=== PATIENT | female | born 1985 | race Caucasian/White ===

== ENCOUNTER 2018-04-07 01:38 | Outpatient (CLI) | payer MEDICAID ==
[~2018-04-07] VITALS: Ht 165.1 cm; Wt 72.1 kg
[2018-04-07 01:52] VITALS: BP 132/78
--- NOTE | 2018-04-07 02:05 | NUR ---
LATRICE HARTMAN presented to unit via ambulation from home, accompanied by family, with c/o VOMITING,DEHYDRATED. LATRICE HARTMAN weighed, gowned, voided, and to bed. EFHM and TOCO applied, VS taken. LATRICE HARTMAN oriented to bed controls, call light, TV, heat, and A/C controls.
[2018-04-07] MEDS ORDERED: LACTATED RINGERS 1,000 ML IV ONE ×2 (02:31→02:45)
[2018-04-07] MEDS ORDERED: PNV11TAB5 PO (02:32)
[2018-04-07] MEDS ORDERED: ONDANSETRON 4 MG/2 ML (SDV) Z0FRAN IVP ONE (02:45)
[2018-04-07] MEDS ORDERED: ONDANSETRON 4 MG/2 ML (SDV) Z0FRAN ONE (02:49)
== END 2018-04-07 04:29 ==
LOC: WSo 01:38 → LDRP 01:39 → WSo 04:29
PROVIDERS: ATTEND Family Medicine
DX: O21.2 Late vomiting of pregnancy (principal); Z3A.26 26 weeks gestation of pregnancy
CPT/HCPCS: 96360; 96361; 99213

== ENCOUNTER 2020-03-14 10:30 | Emergency (ER) | payer MEDICAID ==
[~2020-03-14] VITALS: Ht 165.1 cm; Wt 77.1 kg
[~2020-03-14 10:30] MED LIST: PNV11TAB5 PO
[2020-03-14 11:29] LABS: BASOPHILS % (AUTO) 0 % (0-10); EOSINOPHILS % (AUTO) 0 % (0-10); HEMATOCRIT 42 % (35-52); HEMOGLOBIN 15.1 g/dL (11.5-16.0); LYMPHOCYTES # (AUTO) 2.6 10^3/uL (1.0-4.0); LYMPHOCYTES % (AUTO) 26 % (12-44); MEAN CORPUSCULAR HEMOGLOBIN 31 pg (25-34); MEAN CORPUSCULAR HGB CONC 36 g/dL (32-36); MEAN CORPUSCULAR VOLUME 86 fL (80-99); MEAN PLATELET VOLUME 10.5 fL (9.0-12.2); MONOCYTES # (AUTO) 1.1 10^3/uL (0.0-1.0); MONOCYTES % (AUTO) 11 % (0-12); NEUTROPHILS # (AUTO) 6.2 10^3/uL (1.8-7.8); NEUTROPHILS % (AUTO) 62 % (42-75); PLATELET COUNT 353 10^3/uL (130-400); WHITE BLOOD COUNT 9.9 10^3/uL (4.3-11.0)
[2020-03-14 11:42] LABS: ALBUMIN 4.6 GM/DL (3.2-4.5); CHLORIDE 92 MMOL/L (98-107); POTASSIUM 2.7 MMOL/L (3.6-5.0); SODIUM 132 MMOL/L (135-145)
[2020-03-14 11:43] LABS: AMYLASE 23 U/L (25-125); CALCIUM 9.2 MG/DL (8.5-10.1)
[2020-03-14 11:44] LABS: GLUCOSE 117 MG/DL (70-105)
[2020-03-14 11:45] LABS: CARBON DIOXIDE 26 MMOL/L (21-32); TOTAL PROTEIN 7.5 GM/DL (6.4-8.2)
[2020-03-14 11:46] LABS: BILIRUBIN,TOTAL 0.8 MG/DL (0.1-1.0)
[2020-03-14 11:48] LABS: ALKALINE PHOSPHATASE 50 U/L (40-136); CREATININE SERUM 0.83 MG/DL (0.60-1.30); GFR ESTIMATED > 60
[2020-03-14 11:49] LABS: BUN/CREATININE RATIO 12
[2020-03-14 11:51] LABS: ALANINE AMINOTRANSFERASE 48 U/L (0-55)
[2020-03-14 11:52] LABS: LIPASE 8 U/L (8-78)
[2020-03-14 11:58] LABS: CLARITY,URINE CLEAR; COLOR,URINE YELLOW; GLUCOSE, URINE (UA) NEGATIVE (NEGATIVE); PH,URINE 7.5 (5-9); PROTEIN,URINE TRACE (NEGATIVE)
[2020-03-14 11:59] LABS: BILIRUBIN,URINE NEGATIVE (NEGATIVE); KETONES,URINE TRACE (NEGATIVE); LEUKOCYTE ESTERASE ,URINE NEGATIVE (NEGATIVE); NITRITE,URINE NEGATIVE (NEGATIVE)
[2020-03-14 12:01] LABS: BACTERIA,URINE TRACE /HPF; RBC,URINE 0-2 /HPF; WBC,URINE 0-2 /HPF
[2020-03-14 12:02] LABS: SQUAMOUS EPITHELIAL CELL,UR 25-50 /HPF
[2020-03-14] MEDS ORDERED: PANTOPRAZOLE 40 MG (PROTONIX) VIAL IV ONE (12:15)
[2020-03-14] MEDS ORDERED: LACTATED RINGERS 1,000 ML IV ONE (12:15)
[2020-03-14] MEDS ORDERED: KETOROLAC 30 MG/ML VIAL IVP ONE (12:15)
[2020-03-14] MEDS ORDERED: ONDANSETRON 4 MG/2 ML (SDV) Z0FRAN IVP ONE (12:15)
--- NOTE | 2020-03-14 12:29 | ED Abdominal Pain ---
General Chief Complaint: Abdominal/GI Problems Stated Complaint: N/V, RLQ PAIN Nursing Triage Note: Pt ambulatory to 3. Pt c/o RUQ burning that has persisted for at least two years. Pt reports ongoing nausea and vomiting. Pt denies PCP, but reports [facility] in [place] told pt this is related to gallbladder and pt needs to have a cholecystectomy. Pt reports not having insurance and couldn't get the surgery. Pt reports being told by OB at of son to use acid reducers. Pt reports forgetting. Sepsis Screen: No Definite Risk Source of Information: Patient History of Present Illness Date Seen by Provider: Mar 14, 2020 Time Seen by Provider: 11:03 Initial Comments PT ARRIVES VIA POV C/O RUQ PAIN AND NAUSEA/VOMITING THIS IS ONGOING PROBLEM FOR OVER 2 YEARS, BEGAN WHILE SHE WAS OVER 2 YEARS AGO. PT STATE SHE HAS NOT BEEN ABLE TO EAT OR DRINK FOR THE LAST 3 DAYS STATES SHE HAS VOMITED "SEVERAL" TIMES TODAY--STATES SHE TOOK A BITE OF PORK CHOP THIS AM, OTHERWISE LAST FOOD INTAKE WAS OVER 3 DAYS AGO. STATES SHE TRIED TO DRINK PEPPERMINT TEA THIS AM, BUT VOMITED IT BACK UP NO FEVER NO PROBLEMS URINATING NO RADIATION OF PAIN STATES THE ONLY TIME SHE HAS SEEN ANYONE FOR THIS PROBLEM WAS AT [facility] IN [place] SEVERAL MONTHS AGO AND WAS TOLD SHE NEEDED HER GALLBLADDER OUT, BUT SHE NEVER FOLLOWED UP WITH ANYONE. STATES "NO INSURANCE" PT IS [facility] PATIENT, BUT HAS NOT SOUGHT CARE WITH ANYONE THERE FOR THIS PROBLEM AT ANY TIME. PT LATER STATES SHE NOW HAS "KANCARE"--"JUST GOT IT" HAS NOT TAKEN ANYTHING FOR SYMPTOMS LMP 1 WEEK AGO, PERIODS ALWAYS IRREGULAR. NO CONTROL PCP: [facility] Allergies and Home Medications Allergies Coded Allergies: bupropion (Verified Allergy, Unknown, 04/07/18) Home Medications Hyoscyamine Sulfate 0.125 Mg Tab.subl, 0.25 MG SL Q4H Prescribed by: RUSTY RODRIGUEZ on 03/14/20 135 Ondansetron 8 Mg Tab.rapdis, 8 MG PO Q6H Prescribed by: RUSTY RODRIGUEZ on 03/14/20 1356 Pantoprazole Sodium 40 Mg Tablet.dr, 40 MG PO DAILY Prescribed by: RUSTY RODRIGUEZ on 03/14/20 1356 [id number]/FA/Omega3/Dha/Fish Oil 1 Each Tab.chew, 1 EACH PO DAILY, (Reported) Tramadol HCl 50 Mg Tablet, 50 MG PO Q4H Prescribed by: RUSTY RODRIGUEZ on 03/14/20 7580 Patient Home Medication List Home Medication List Reviewed: Yes Review of Systems Review of Systems Constitutional: no symptoms reported; No chills, No diaphoresis, No fever EENTM: No Symptoms Reported Respiratory: No Symptoms Reported Cardiovascular: No Symptoms Reported Gastrointestinal: See HPI, Abdominal Pain; Denies Diarrhea; Nausea, Poor Appetite, Vomiting Genitourinary: No Symptoms Reported Musculoskeletal: no symptoms reported; No back pain Skin: no symptoms reported Psychiatric/Neurological: No Symptoms Reported Endocrine: No Symptoms Reported Hematologic/Lymphatic: No Symptoms Reported Other Comments STATES SHE IS SUPPOSED TO BE ON CYMBALTA FOR DEPRESSION/ANXIETY, SUPPOSED TO BE ON MOBIC AND FLEXERIL FOR CHRONIC BACK PAIN--HAS NOT TAKEN ANY OF THESE MEDICATIONS IN OVER 2 YEARS--SINCE BECOMING WITH 2 Y.O. SON. Past Xbzffgk-Awolfx-Nuunim Hx Past Med/Social Hx: Reviewed and Corrections made Patient Social History Alcohol Use: Rarely Uses Recreational Drug Use: No Smoking Status: Former Smoker Type Used: Cigarettes Former Smoker, Quit: Aug 06, 2019 2nd Hand Smoke Exposure: Yes Recent Foreign Travel: No Contact w/Someone Who Travel: No Recent Infectious Disease Expo: No Recent Hopitalizations: No Seasonal Allergies Seasonal Allergies: Yes Past Medical History Surgeries: Yes ( X 1) Section Respiratory: No Cardiac: No Neurological: No : No Last Menstrual Period: Mar 07, 2020 Reproductive Disorders: No Female Reproductive Disorders: Denies Genitourinary: No Gastrointestinal: Yes Gall Bladder Disease Musculoskeletal: No Endocrine: No HEENT: No Cancer: No Psychosocial: Yes Anxiety, Bipolar, Depression Integumentary: No Blood Disorders: No Physical Exam Vital Signs Vital Signs - First Documented 03/14/20 11:00 Temp 36.2 Pulse 74 Resp 20 B/P (MAP) 116/86 (96) Pulse Ox 96 O2 Delivery Room Air Capillary Refill : Less Than 3 Seconds Height/Weight/BMI Height: 5'5.00" Weight: 159lbs. 0.0oz. 72.152083ny; 28.00 BMI Method: General Appearance: WD/WN, no apparent distress, other (WALKS UPRIGHT AND MOVES WITHOUT DIFFICULTY. DOES NOT APPEAR TO BE IN ANY DISCOMFORT OR DISTRESS. 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, no motor/sensory deficits, alert, normal mood/affect, oriented x 3 Skin: normal color, warm/dry; No rash Progress/Results/Core Measures Results/Orders Lab Results Laboratory Tests Test 03/14/20 11:22 03/14/20 11:38 Range/Units White Blood Count 9.9 4.3-11.0 10^3/uL Red Blood Count 4.86 3.80-5.11 10^6/uL Hemoglobin 15.1 11.5-16.0 g/dL Hematocrit 42 35-52 % Mean Corpuscular Volume 86 80-99 fL Mean Corpuscular Hemoglobin 31 25-34 pg Mean Corpuscular Hemoglobin Concent 36 32-36 g/dL Red Cell Distribution Width 12.5 10.0-14.5 % Platelet Count 353 130-400 10^3/uL Mean Platelet Volume 10.5 9.0-12.2 fL Immature Granulocyte % (Auto) 0 % Neutrophils (%) (Auto) 62 42-75 % Lymphocytes (%) (Auto) 26 12-44 % Monocytes (%) (Auto) 11 0-12 % Eosinophils (%) (Auto) 0 0-10 % Basophils (%) (Auto) 0 0-10 % Neutrophils # (Auto) 6.2 1.8-7.8 10^3/uL Lymphocytes # (Auto) 2.6 1.0-4.0 10^3/uL Monocytes # (Auto) 1.1 H 0.0-1.0 10^3/uL Eosinophils # (Auto) 0.0 0.0-0.3 10^3/uL Basophils # (Auto) 0.0 0.0-0.1 10^3/uL Immature Granulocyte # (Auto) 0.0 0.0-0.1 10^3/uL Sodium Level 132 L 135-145 MMOL/L Potassium Level 2.7 L 3.6-5.0 MMOL/L Chloride Level 92 L 98-107 MMOL/L Carbon Dioxide Level 26 21-32 MMOL/L Anion Gap 14 5-14 MMOL/L Blood Urea Nitrogen 10 7-18 MG/DL Creatinine 0.83 0.60-1.30 MG/DL Estimat Glomerular Filtration Rate > 60 BUN/Creatinine Ratio 12 Glucose Level 117 H 70-105 MG/DL Calcium Level 9.2 8.5-10.1 MG/DL Corrected Calcium 8.5-10.1 MG/DL Total Bilirubin 0.8 0.1-1.0 MG/DL Aspartate Amino Transf (AST/SGOT) 35 H 5-34 U/L Alanine Aminotransferase (ALT/SGPT) 48 0-55 U/L Alkaline Phosphatase 50 40-136 U/L Total Protein 7.5 6.4-8.2 GM/DL Albumin 4.6 H 3.2-4.5 GM/DL Amylase Level 23 L 25-125 U/L Lipase 8 8-78 U/L Serum Alcohol < 10 <10 MG/DL Urine Color YELLOW Urine Clarity CLEAR Urine pH 7.5 5-9 Urine Specific [place] 1.010 L 1.016-1.022 Urine Protein TRACE H NEGATIVE Urine Glucose (UA) NEGATIVE NEGATIVE Urine Ketones TRACE H NEGATIVE Urine Nitrite NEGATIVE NEGATIVE Urine Bilirubin NEGATIVE NEGATIVE Urine Urobilinogen 1.0 < = 1.0 MG/DL Urine Leukocyte Esterase NEGATIVE NEGATIVE Urine RBC (Auto) NEGATIVE NEGATIVE Urine RBC 0-2 /HPF Urine WBC 0-2 /HPF Urine Squamous Epithelial Cells 25-50 H /HPF Urine Crystals NONE /LPF Urine Bacteria TRACE /HPF Urine Casts NONE /LPF Urine Mucus SMALL H /LPF Urine Culture Indicated NO Urine Opiates Screen NEGATIVE NEGATIVE Urine Oxycodone Screen NEGATIVE NEGATIVE Urine Methadone Screen NEGATIVE NEGATIVE Urine Propoxyphene Screen NEGATIVE NEGATIVE Urine Barbiturates Screen NEGATIVE NEGATIVE Ur Tricyclic Antidepressants Screen NEGATIVE NEGATIVE Urine Phencyclidine Screen NEGATIVE NEGATIVE Urine Amphetamines Screen NEGATIVE NEGATIVE Urine Methamphetamines Screen NEGATIVE NEGATIVE Urine Benzodiazepines Screen NEGATIVE NEGATIVE Urine Cocaine Screen NEGATIVE NEGATIVE Urine Cannabinoids Screen POSITIVE H NEGATIVE My Orders Orders - RUSTY RODRIGUEZ DO Ed Iv/Invasive Line Start (03/14/20 11:10) Urine Bedside (03/14/20 11:10) Amylase (03/14/20 11:10) Cbc With Automated Diff (03/14/20 11:10) Comprehensive Metabolic Panel (03/14/20 11:10) Drug Screen Stat (Urine) (03/14/20 11:10) Lipase (03/14/20 11:10) Ua Culture If Indicated (03/14/20 11:10) Alcohol (03/14/20 11:10) Ed Iv/Invasive Line Start (03/14/20 12:12) Lactated Ringers (Lr 1000 Ml Iv Solution (03/14/20 12:15) Us Gallbladder [id number] (03/14/20 12:12) Ketorolac Injection (Toradol Injection) (03/14/20 12:15) Ondansetron Injection (Zofran Injectio (03/14/20 12:15) Pantoprazole Injection (Protonix Injecti (03/14/20 12:15) Medications Given in ED Vital Signs/I&O 03/14/20 03/14/20 11:00 14:04 Temp 36.2 36.2 Pulse 74 70 Resp 20 20 B/P (MAP) 116/86 (96) 128/86 (96) Pulse Ox 96 96 O2 Delivery Room Air Room Air Blood Pressure Mean: 96 Progress Progress Note : Progress Note SLEPT / RESTED QUIETLY FOR MOST OF ER STAY GIVEN IV FLUIDS, TORADOL, ZOFRAN, PROTONIX. SYMPTOMS RESOLVED AT DISMISSAL Diagnostic Imaging Comments GALLBLADDER ULTRASOUND--PER RADIOLOGIST REPORT AT 1350 FINDINGS: There are gallstones present. The Vieyra's sign is negative. The gallbladder wall is 2.5 mm in thickness and unremarkable. No pericholecystic fluid or edema found. The intra and extra hepatic bile ducts were not pathologically distended. No opaque choledocholithiasis. Liver parenchyma appeared unremarkable. The unobstructed right kidney is normal. The aorta is nonaneurysmal where visualized. No ascites. IMPRESSION: Mobile calculus within the gallbladder. No biliary dilatation or secondary findings to suggest acute cholecystitis. Reviewed: Reviewed by Me Departure Impression Primary Impression: Cholelithiasis Additional Impression: DEHYDRATION WITH ELECTROLYTE IMBALANCE Disposition: HOME, SELF-CARE Condition: Improved Departure-Patient Inst. Referrals: MAYRA WALKER DO [facility] [place] Patient Instructions: Gallstones (DC) Add. Discharge Instructions: CLEAR LIQUIDS--WATER, BROTH, JELLO, GATORADE WHEN YOUR PAIN AND NAUSEA IS BETTER, ADD BRATS DIET TO CLEAR LIQUIDS--BANANS, R ICE, APPLESAUCE, TOAST, SALTINES FOLLOW UP WITH DR. WALKER OR SURGEON OF CHOICE FOR FURTHER CARE--CALL TODAY OR TUESDAY TO SCHEDULE APPOINTMENT All discharge instructions reviewed with patient and/or family. Voiced understanding. Scripts Tramadol HCl (Ultram) 50 Mg Tablet 50 MG PO Q4H for Pain, #20 TAB Prov: RUSTY RODRIGUEZ DO 03/14/20 Hyoscyamine Sulfate (Levsin-Sl) 0.125 Mg Tab.subl 0.25 MG SL Q4H, #20 TAB Prov: RUSTY RODRIGUEZ DO 03/14/20 Ondansetron (Ondansetron Odt) 8 Mg Tab.rapdis 8 MG PO Q6H, #10 TAB Prov: RUSTY RODRIGUEZ DO 03/14/20 Pantoprazole Sodium (Protonix) 40 Mg Tablet.dr 40 MG PO DAILY, #15 TAB Prov: RUSTY RODRIGUEZ DO 03/14/20 RUSTY RODRIGUEZ DO Mar 14, 2020 12:29
[2020-03-14 12:58] LABS: AMPHETAMINE SCREEN, URINE NEGATIVE (NEGATIVE); BARBITURATE SCREEN URINE NEGATIVE (NEGATIVE); BENZODIAZEPINES SCREEN URINE NEGATIVE (NEGATIVE); CANNABINOID SCREEN, URINE POSITIVE (NEGATIVE); COCAINE SCREEN URINE NEGATIVE (NEGATIVE); METHADONE STAT NEGATIVE (NEGATIVE); METHAMPHETAMINE SCREEN URINE S NEGATIVE (NEGATIVE); OPIATE SCREEN URINE NEGATIVE (NEGATIVE); OXYCODONE STAT NEGATIVE (NEGATIVE); PROPOXYPHENE STAT NEGATIVE (NEGATIVE); TRICYCLIC ANTIDEPRESSANTS SCRE NEGATIVE (NEGATIVE)
--- NOTE | 2020-03-14 13:46 | Diagnostic Imaging Report ---
PROCEDURE: US Gallbladder. TECHNIQUE: Multiple real-time grayscale images were obtained over the right upper quadrant in various projections. INDICATION: Right upper quadrant pain. FINDINGS: There are gallstones present. The Vieyra's sign is negative. The gallbladder wall is 2.5 mm in thickness and unremarkable. No pericholecystic fluid or edema found. The intra and extra hepatic bile ducts were not pathologically distended. No opaque choledocholithiasis. Liver parenchyma appeared unremarkable. The unobstructed right kidney is normal. The aorta is nonaneurysmal where visualized. No ascites. IMPRESSION: Mobile calculus within the gallbladder. No biliary dilatation or secondary findings to suggest acute cholecystitis. Dictated by: Dictated on workstation # [id number]
[2020-03-14] MEDS ORDERED: HYOS0.1283 SL (13:56)
[2020-03-14] MEDS ORDERED: TRAM-42 PO (13:56)
[2020-03-14] MEDS ORDERED: ONDA8TAB13 PO (13:56)
[2020-03-14] MEDS ORDERED: PANT40TA2 PO (13:56)
[2020-03-14 14:04] VITALS: BP 128/86
== END 2020-03-14 14:04 | disposition home or self-care (01) ==
LOC: EDUNIT# 10:30 → ER 10:31
DX: K80.20 Calculus of gallbladder without cholecystitis without obstruction (principal); E86.0 Dehydration; E87.8 Other disorders of electrolyte and fluid balance, not elsewhere classified; Z77.22 Contact with and (suspected) exposure to environmental tobacco smoke (acute) (chronic); Z87.891 Personal history of nicotine dependence; Z88.8 Allergy status to other drugs, medicaments and biological substances
CPT/HCPCS: 76705; 80053; 80306; 81000; 82150; 83690; 84703; 85025; 99284; G0480; 36415; 80320

== ENCOUNTER 2020-03-17 07:56 | Emergency (ER) | payer MEDICAID ==
[~2020-03-17] VITALS: Ht 165 cm; Wt 77.1 kg
[~2020-03-17 07:56] MED LIST changes: +HYOS0.1283 SL; +ONDA8TAB13 PO; +PANT40TA2 PO; +TRAM-42 PO
--- NOTE | 2020-03-17 08:17 | ED Abdominal Pain ---
General Stated Complaint: N/V, GALLBLADDER Source of Information: Patient Exam Limitations: No Limitations History of Present Illness Date Seen by Provider: Mar 17, 2020 Time Seen by Provider: 08:14 Initial Comments 34-year-old female presents to the emergency department today with a chief complaint of abdominal cramping nausea and vomiting. Patient was seen in the emergency room 3 days ago with similar complaints and had a gallbladder ultrasound done which showed a mobile gallstone. No secondary signs of cholecystitis. Patient was sent home with a cocktail of medications to include Protonix, Zofran and Levsin. Patient states that she has continued to have nausea and vomiting. Patient also states that she uses daily THC. This could be contributing to her symptoms. She denies any fevers, chills, productive cough or URI symptoms. Patient states that over the course of the last 24 hours or so she has developed some burning with urination. Reviewed the record from Tuesday and the patient also had a relatively low potassium at 2.8. It does not appear that her potassium was replaced at that visit. Patient is asking for some IV Zofran here at this visit. Patient is counseled on triggers for increased gallbladder pain including fatty foods and alcohol. She is also counseled on decreasing her marijuana usage as this might improve her symptoms overall. All other review of systems reviewed and negative except as stated above. Timing/Duration: 3-4 Days Severity/Quality: Moderate Location: RUQ Radiation: No Radiation Activities at Onset: None Associated Symptoms: Nausea/Vomiting Allergies and Home Medications Allergies Coded Allergies: bupropion (Verified Allergy, Unknown, 04/07/18) Home Medications Hyoscyamine Sulfate 0.125 Mg Tab.subl, 0.25 MG SL Q4H Prescribed by: RUSTY RODRIGUEZ on 03/14/201355 Ondansetron 8 Mg Tab.rapdis, 8 MG PO Q6H Prescribed by: RUSTY RODRIGUEZ on 03/14/201355 Pantoprazole Sodium 40 Mg Tablet.dr, 40 MG PO DAILY Prescribed by: RUSTY RODRIGUEZ on 03/14/201355 Nwd313/FA/Omega3/Dha/Fish Oil 1 Each Tab.chew, 1 EACH PO DAILY, (Reported) Tramadol HCl 50 Mg Tablet, 50 MG PO Q4H Prescribed by: RUSTY RODRIGUEZ on 03/14/20 135 Patient Home Medication List Home Medication List Reviewed: Yes Review of Systems Review of Systems Constitutional: see HPI EENTM: No Symptoms Reported Respiratory: No Symptoms Reported Cardiovascular: No Symptoms Reported Gastrointestinal: Nausea, Poor Appetite, Vomiting Genitourinary: Burning; Denies Discharge, Denies Flank Pain, Denies Hematuria Musculoskeletal: no symptoms reported Skin: no symptoms reported All Other Systems Reviewed Negative Unless Noted: Yes Past Jwxpees-Ulgtet-Dbveqq Hx Patient Social History Type Used: Cigarettes Former Smoker, Quit: Aug 06, 2019 2nd Hand Smoke Exposure: Yes Recent Foreign Travel: No Contact w/Someone Who Travel: No Recent Hopitalizations: No Seasonal Allergies Seasonal Allergies: Yes Past Medical History Surgeries: Yes ( X 1) Section Respiratory: No Cardiac: No Neurological: No Reproductive Disorders: No Female Reproductive Disorders: Denies Genitourinary: No Gastrointestinal: Yes Gall Bladder Disease Musculoskeletal: No Endocrine: No HEENT: No Cancer: No Psychosocial: Yes Anxiety, Bipolar, Depression Integumentary: No Blood Disorders: No Physical Exam Vital Signs Vital Signs - First Documented 03/17/20 08:16 Temp 35.5 Pulse 79 Resp 18 B/P (MAP) 112/82 (92) Pulse Ox 98 Capillary Refill : Height/Weight/BMI Height: 5'5.00" Weight: 159lbs. 0.0oz. 72.738061yg; 28.00 BMI Method: General Appearance: WD/WN, no apparent distress Respiratory: lungs clear, normal breath sounds, no respiratory distress Cardiovascular: regular rate, rhythm, no murmur Gastrointestinal: non tender, soft, other (minimal RUQ tenderness to palpation) Extremities: normal inspection Neurologic/Psychiatric: alert, normal mood/affect, oriented x 3 Skin: normal color, warm/dry Progress/Results/Core Measures Results/Orders Lab Results Laboratory Tests Test 03/17/20 08:39 03/17/20 09:14 Range/Units Sodium Level 132 L 135-145 MMOL/L Potassium Level 3.0 L 3.6-5.0 MMOL/L Chloride Level 95 L 98-107 MMOL/L Carbon Dioxide Level 27 21-32 MMOL/L Anion Gap 10 5-14 MMOL/L Blood Urea Nitrogen 10 7-18 MG/DL Creatinine 0.87 0.60-1.30 MG/DL Estimat Glomerular Filtration Rate > 60 BUN/Creatinine Ratio 11 Glucose Level 116 H 70-105 MG/DL Calcium Level 8.8 8.5-10.1 MG/DL Corrected Calcium 8.6 8.5-10.1 MG/DL Total Bilirubin 0.8 0.1-1.0 MG/DL Aspartate Amino Transf (AST/SGOT) 47 H 5-34 U/L Alanine Aminotransferase (ALT/SGPT) 171 H 0-55 U/L Alkaline Phosphatase 52 40-136 U/L Total Protein 6.8 6.4-8.2 GM/DL Albumin 4.3 3.2-4.5 GM/DL Urine Color YELLOW Urine Clarity TURBID Urine pH 8.5 5-9 Urine Specific [place] 1.010 L 1.016-1.022 Urine Protein 1+ H NEGATIVE Urine Glucose (UA) NEGATIVE NEGATIVE Urine Ketones NEGATIVE NEGATIVE Urine Nitrite NEGATIVE NEGATIVE Urine Bilirubin NEGATIVE NEGATIVE Urine Urobilinogen 1.0 < = 1.0 MG/DL Urine Leukocyte Esterase NEGATIVE NEGATIVE Urine RBC (Auto) 3+ H NEGATIVE Urine RBC 0-2 /HPF Urine WBC 0-2 /HPF Urine Squamous Epithelial Cells 25-50 H /HPF Urine Crystals PRESENT H /LPF Urine Amorphous Sediment MOD SUHAIL PHOSPHATE H /LPF Urine Bacteria FEW H /HPF Urine Casts NONE /LPF Urine Mucus NEGATIVE /LPF Urine Culture Indicated NO My Orders Orders - TRACY PÉREZ MD Ed Iv/Invasive Line Start (03/17/20 08:23) Comprehensive Metabolic Panel (03/17/20 08:23) Ua Culture If Indicated (03/17/20 08:23) Ns Iv 1000 Ml (Sodium Chloride 0.9%) (03/17/20 08:30) Ondansetron Injection (Zofran Injectio (03/17/20 08:30) Medications Given in ED Current Medications Medications Dose Ordered Sig/Felipa Route Start Time Stop Time Status Last Admin Dose Admin Ondansetron HCl 4 mg ONCE ONCE IVP 03/17/20 08:30 03/17/20 08:31 DC 03/17/20 08:36 4 MG Vital Signs/I&O 03/17/20 08:16 Temp 35.5 Pulse 79 Resp 18 B/P (MAP) 112/82 (92) Pulse Ox 98 Progress Progress Note : Time: 09:30 Progress Note Patient's laboratory studies have been reviewed. Her urine is clean of any infection. He CMP shows a slightly improved potassium at 3.0 with a slight elevation in her LFT's. Renal function is good. other electrolytes are acceptab le. Patient counselled again to stop smoking THC, Avoid fatty foods. Also advised to follow up with a general surgeon - she was given Dr Walker's contact information on Tuesday. PAtient verbalizes understanding of her discharge instructions. All questions are sought and answered and she is stable for discharge. Departure Impression Primary Impression: Abdominal pain Qualified Codes: R10.11 - Right upper quadrant pain Additional Impression: Nausea and vomiting Qualified Codes: R11.2 - Nausea with vomiting, unspecified Disposition: HOME, SELF-CARE Condition: Stable Departure-Patient Inst. Referrals: MAYRA WALKER DO NO,LOCAL PHYSICIAN (PCP) Primary Care Physician Patient Instructions: Gallstones (DC), Severe Abdominal Pain, Adult (DC) Add. Discharge Instructions: Drink plenty of fluids to stay well hydrated. Gatorade and fitness estrada with electrolytes will help replace your vomiting losses. Continue to use the zofran and levsin as previously prescribed. Avoid fatty foods. Please follow up with Dr Walker as referred or the surgeon of your choice regarding your gallstone. Try and stop smoking marijuana as this can contribute to your nausea. Come back to the Emergency Department for any worsening pain that is not relieved with medications, fevers, vomiting that won's stop, or any other emergent concerning symptoms. TRACY PÉREZ MD Mar 17, 2020 08:17
[2020-03-17] MEDS ORDERED: ONDANSETRON 4 MG/2 ML (SDV) Z0FRAN IVP ONE (08:30)
[2020-03-17] MEDS ORDERED: NS IV 1000 ML 1,000 ML IV SCH (08:30)
[2020-03-17 08:53] LABS: ALBUMIN 4.3 GM/DL (3.2-4.5); CHLORIDE 95 MMOL/L (98-107); SODIUM 132 MMOL/L (135-145)
[2020-03-17 08:54] LABS: CALCIUM 8.8 MG/DL (8.5-10.1)
[2020-03-17 08:55] LABS: GLUCOSE 116 MG/DL (70-105)
[2020-03-17 08:56] LABS: TOTAL PROTEIN 6.8 GM/DL (6.4-8.2)
[2020-03-17 08:57] LABS: BILIRUBIN,TOTAL 0.8 MG/DL (0.1-1.0); CARBON DIOXIDE 27 MMOL/L (21-32)
[2020-03-17 08:59] LABS: ALKALINE PHOSPHATASE 52 U/L (40-136); CREATININE SERUM 0.87 MG/DL (0.60-1.30); GFR ESTIMATED > 60
[2020-03-17 09:00] LABS: BUN/CREATININE RATIO 11
[2020-03-17 09:02] LABS: ALANINE AMINOTRANSFERASE 171 U/L (0-55)
[2020-03-17 09:20] LABS: BILIRUBIN,URINE NEGATIVE (NEGATIVE); CLARITY,URINE TURBID; COLOR,URINE YELLOW; GLUCOSE, URINE (UA) NEGATIVE (NEGATIVE); KETONES,URINE NEGATIVE (NEGATIVE); LEUKOCYTE ESTERASE ,URINE NEGATIVE (NEGATIVE); NITRITE,URINE NEGATIVE (NEGATIVE); PH,URINE 8.5 (5-9); PROTEIN,URINE 1+ (NEGATIVE)
[2020-03-17 09:27] LABS: BACTERIA,URINE FEW /HPF; RBC,URINE 0-2 /HPF; SQUAMOUS EPITHELIAL CELL,UR 25-50 /HPF; WBC,URINE 0-2 /HPF
[2020-03-17 09:28] LABS: AMORPHOUS SEDIMENT,UR MOD AMOR PHOSPHATE /LPF
[2020-03-17 09:45] VITALS: BP 141/90
== END 2020-03-17 09:45 | disposition home or self-care (01) ==
LOC: EDUNIT# 07:56 → ER 07:58
DX: R11.2 Nausea with vomiting, unspecified (principal); R10.11 Right upper quadrant pain; Z87.891 Personal history of nicotine dependence; Z77.22 Contact with and (suspected) exposure to environmental tobacco smoke (acute) (chronic); Z88.8 Allergy status to other drugs, medicaments and biological substances
CPT/HCPCS: 36415; 80053; 81000

== ENCOUNTER 2020-03-24 05:30 | Outpatient (RCR) | payer MEDICAID ==
[~2020-03-24] VITALS: Ht 165.1 cm; Wt 68.1 kg
== END 2020-03-24 09:50 | disposition home or self-care (01) ==
LOC: PREOP 05:30
PROVIDERS: ATTEND Surgery
DX: Z01.818 Encounter for other preprocedural examination (principal); K80.20 Calculus of gallbladder without cholecystitis without obstruction; Z20.822 Contact with and (suspected) exposure to COVID-19
CPT/HCPCS: 87635

== ENCOUNTER 2021-08-01 10:20 | Emergency (ER) | payer MEDICAID ==
[~2021-08-01] VITALS: Ht 165 cm; Wt 79.0 kg
[2021-08-01] MEDS ORDERED: DICYCLOMINE 10 MG (BENTYL) CAP PO STA (10:39)
--- NOTE | 2021-08-01 10:43 | ED Abdominal Pain ---
General Chief Complaint: Abdominal/GI Problems Stated Complaint: R SIDE ABD PAIN/COUGH/VOMITING Nursing Triage Note: ARRIVED VIA AMB WITH COMPLAINTS OF RIGHT UPPER ABD PAIN X5 DAYS. STATES SHE HAS BEEN HAVING TROUBLE WITH HER GALLBALDDER FOR A WHILE NOW. Source of Information: Patient Exam Limitations: No Limitations History of Present Illness Date Seen by Provider: August 01, 2021 Time Seen by Provider: 10:32 Initial Comments Patient is a 35-year-old female who presents to the emergency room with a chief complaint of right upper quadrant abdominal pain, "a gallbladder flareup" over the last week. She states the pain got worse yesterday. She did try and eat some shrimp scampi. Woke up with more intense pain, nausea. She is having "a little bit" of diarrhea. She thought there might of been a little blood in her stool yesterday. No history of hemorrhoids or colon issues in herself or family members. No fevers, chills. No URI symptoms. No burning with urination. She states she has been previously diagnosed with "gallstones". She is very scared about having surgery as she has a 3-year-old at home. She states she normally curls up in a hot shower and this sometimes will alleviate her pain. (Of note for review of the medical record the patient also did endorse that prior ED visits smoking marijuana. This sometimes causes exacerbations of abdominal pain, nausea and vomiting and is relieved with hot showers.) Allergic only to bupropion. Pain is currently mild but she is nauseous. All other review of systems reviewed and negative except as stated. Timing/Duration: 4-5 Days Severity/Quality: Moderate, Cramping Location: RUQ Radiation: No Radiation Activities at Onset: None Associated Symptoms: Nausea/Vomiting Allergies and Home Medications Allergies Coded Allergies: bupropion (Verified Allergy, Unknown, 04/07/18) Patient Home Medication List Home Medication List Reviewed: Yes No Active Prescriptions or Reported Meds Review of Systems Review of Systems Constitutional: see HPI EENTM: No Symptoms Reported Respiratory: No Symptoms Reported Cardiovascular: No Symptoms Reported Gastrointestinal: Abdominal Pain, Blood Streaked Stools ("little bit of blood yesterday"), Diarrhea Genitourinary: No Symptoms Reported Musculoskeletal: no symptoms reported Skin: no symptoms reported Psychiatric/Neurological: Anxiety All Other Systems Reviewed Negative Unless Noted: Yes Past Sogiuiv-Sxhade-Whcypb Hx Immunizations Up To Date PED Vaccines UTD: No Seasonal Allergies Seasonal Allergies: Yes Past Medical History Surgeries: Yes ( X 1) Section Respiratory: No Cardiac: No Neurological: Yes Headaches /Migraines Reproductive Disorders: No Female Reproductive Disorders: Denies Genitourinary: No Gastrointestinal: Yes Gastroesophageal Reflux Musculoskeletal: Yes Chronic Back Pain Endocrine: No HEENT: No Cancer: No Psychosocial: Yes Anxiety, Bipolar, Depression Integumentary: No Blood Disorders: No Physical Exam Vital Signs Vital Signs - First Documented 08/01/21 10:25 Temp 35.8 Pulse 88 Resp 16 B/P (MAP) 127/91 (103) Pulse Ox 96 O2 Delivery Room Air Capillary Refill : Less Than 3 Seconds Height/Weight/BMI Height: 5'5.00" Weight: 159lbs. 0.0oz. [id number]; 29.00 BMI Method: General Appearance: WD/WN, no apparent distress HEENT: PERRL/EOMI Respiratory: lungs clear, normal breath sounds, no respiratory distress, no accessory muscle use Cardiovascular: regular rate, rhythm Peripheral Pulses: 2+ Radial Pulses (R) Gastrointestinal: normal bowel sounds, soft, no organomegaly, tenderness (Mild tenderness in the epigastrium and right upper quadrant. Negative Iveyra sign.) Extremities: normal range of motion, normal inspection Neurologic/Psychiatric: alert, normal mood/affect, oriented x 3 Skin: normal color, warm/dry Progress/Results/Core Measures Results/Orders Lab Results Laboratory Tests Test 08/01/21 10:28 Range/Units White Blood Count 11.9 H 4.3-11.0 10^3/uL Red Blood Count 4.56 3.80-5.11 10^6/uL Hemoglobin 14.3 11.5-16.0 g/dL Hematocrit 41 35-52 % Mean Corpuscular Volume 89 80-99 fL Mean Corpuscular Hemoglobin 31 25-34 pg Mean Corpuscular Hemoglobin Concent 35 32-36 g/dL Red Cell Distribution Width 12.6 10.0-14.5 % Platelet Count 343 130-400 10^3/uL Mean Platelet Volume 10.3 9.0-12.2 fL Immature Granulocyte % (Auto) 0 % Neutrophils (%) (Auto) 75 42-75 % Lymphocytes (%) (Auto) 18 12-44 % Monocytes (%) (Auto) 6 0-12 % Eosinophils (%) (Auto) 0 0-10 % Basophils (%) (Auto) 1 0-10 % Neutrophils # (Auto) 8.8 H 1.8-7.8 10^3/uL Lymphocytes # (Auto) 2.1 1.0-4.0 10^3/uL Monocytes # (Auto) 0.8 0.0-1.0 10^3/uL Eosinophils # (Auto) 0.0 0.0-0.3 10^3/uL Basophils # (Auto) 0.1 0.0-0.1 10^3/uL Immature Granulocyte # (Auto) 0.0 0.0-0.1 10^3/uL Sodium Level 134 L 135-145 MMOL/L Potassium Level 3.4 L 3.6-5.0 MMOL/L Chloride Level 93 L 98-107 MMOL/L Carbon Dioxide Level 26 21-32 MMOL/L Anion Gap 15 H 5-14 MMOL/L Blood Urea Nitrogen 15 7-18 MG/DL Creatinine 0.84 0.60-1.30 MG/DL Estimat Glomerular Filtration Rate 94 BUN/Creatinine Ratio 18 Glucose Level 125 H 70-105 MG/DL Calcium Level 9.1 8.5-10.1 MG/DL Corrected Calcium 8.9 8.5-10.1 MG/DL Total Bilirubin 0.5 0.1-1.0 MG/DL Aspartate Amino Transf (AST/SGOT) 21 5-34 U/L Alanine Aminotransferase (ALT/SGPT) 34 0-55 U/L Alkaline Phosphatase 51 40-136 U/L Total Protein 7.5 6.4-8.2 GM/DL Albumin 4.3 3.2-4.5 GM/DL My Orders Orders - TRACY PÉREZ MD Ed Iv/Invasive Line Start (08/01/21 10:39) Cbc With Automated Diff (08/01/21 10:39) Comprehensive Metabolic Panel (08/01/21 10:39) Urine Bedside (08/01/21 10:39) Ondansetron Injection (Zofran Injectio (08/01/21 10:45) Dicyclomine Capsule (Bentyl Capsule) (08/01/21 10:39) Medications Given in ED Current Medications Medications Dose Ordered Sig/Felipa Route Start Time Stop Time Status Last Admin Dose Admin Ondansetron HCl 4 mg ONCE ONCE IVP 08/01/21 10:45 08/01/21 10:46 DC 08/01/21 10:46 4 MG Vital Signs/I&O 08/01/21 10:25 Temp 35.8 Pulse 88 Resp 16 B/P (MAP) 127/91 (103) Pulse Ox 96 O2 Delivery Room Air Blood Pressure Mean: 103 Progress Progress Note : Time: 11:28 Progress Note Patient feels better after Bentyl and Zofran. Her pain is almost 100% gone. She is quite tired as she has not slept much over the last week. We discussed medications for home use, Bentyl every 6 hours, 30 minutes before meals, avoiding fatty foods. Nausea medicines. Return precautions, fever, intractable pain, inability to hold down meds. We will give her referral information for Dr. CORRAL who is on-call today. I will also look back in the medical record and see who she has been referred to in the past. She is comfortable with this plan of care. All questions have been sought and answered. Departure Impression Primary Impression: Biliary colic Disposition: 01 HOME, SELF-CARE Condition: Improved Departure-Patient Inst. Decision time for Depature: 11:29 Referrals: NO,LOCAL PHYSICIAN (PCP/Family) Primary Care Physician Patient Instructions: Gallstones Add. Discharge Instructions: Try and avoid fatty foods because these will upset your stomach and gallbladder. Take the dicyclomine/Bentyl 30 minutes before meals up to 4 times daily. Zofran, 4 mg every 6-8 hours as needed for nausea. Drink lots of fluids to stay well hydrated. If you develop a fever over 101, worsening pain, worsening vomiting, symptoms that are not controlled by medication please come back to the emergency room for reevaluation. You can also take Tylenol and ibuprofen for discomfort. Follow-up with Dr. CORRAL, the surgeon who is on-call today or Dr Walker whom you were referred to previously. Scripts Ondansetron (Ondansetron Odt) 4 Mg Tab.rapdis 4 MG PO Q8H PRN for nausea, #20 TAB Prov: TRACY PÉREZ MD 08/01/21 Dicyclomine HCl (Dicyclomine HCl) 20 Mg Tablet 20 MG PO Q6H PRN for abdominal pain, #60 TAB Prov: TRACY PÉREZ MD 08/01/21 Copy Copies To 1: NGOC CORRAL MD Copies To 2: MAYRA WALKER KATHRYN M MD August 01, 2021 10:43
[2021-08-01] MEDS ORDERED: ONDANSETRON 4 MG/2 ML (SDV) Z0FRAN IVP ONE (10:45)
[2021-08-01 10:46] LABS: BASOPHILS # (AUTO) 0.1 10^3/uL (0.0-0.1); BASOPHILS % (AUTO) 1 % (0-10); EOSINOPHILS % (AUTO) 0 % (0-10); HEMATOCRIT 41 % (35-52); HEMOGLOBIN 14.3 g/dL (11.5-16.0); LYMPHOCYTES # (AUTO) 2.1 10^3/uL (1.0-4.0); LYMPHOCYTES % (AUTO) 18 % (12-44); MEAN CORPUSCULAR HEMOGLOBIN 31 pg (25-34); MEAN CORPUSCULAR HGB CONC 35 g/dL (32-36); MEAN CORPUSCULAR VOLUME 89 fL (80-99); MEAN PLATELET VOLUME 10.3 fL (9.0-12.2); MONOCYTES # (AUTO) 0.8 10^3/uL (0.0-1.0); MONOCYTES % (AUTO) 6 % (0-12); NEUTROPHILS # (AUTO) 8.8 10^3/uL (1.8-7.8); NEUTROPHILS % (AUTO) 75 % (42-75); PLATELET COUNT 343 10^3/uL (130-400); WHITE BLOOD COUNT 11.9 10^3/uL (4.3-11.0)
[2021-08-01 10:50] LABS: ALBUMIN 4.3 GM/DL (3.2-4.5)
[2021-08-01 10:51] LABS: POTASSIUM 3.4 MMOL/L (3.6-5.0)
[2021-08-01 10:52] LABS: CALCIUM 9.1 MG/DL (8.5-10.1)
[2021-08-01 10:53] LABS: TOTAL PROTEIN 7.5 GM/DL (6.4-8.2)
[2021-08-01 10:55] LABS: BILIRUBIN,TOTAL 0.5 MG/DL (0.1-1.0)
[2021-08-01 10:57] LABS: CREATININE SERUM 0.84 MG/DL (0.60-1.30)
[2021-08-01] MEDS ORDERED: ONDA4TAB11 PO (11:33)
[2021-08-01] MEDS ORDERED: DICY20TA PO (11:33)
[2021-08-01 11:40] VITALS: BP 127/93
== END 2021-08-01 11:39 | disposition home or self-care (01) ==
LOC: EDUNIT# 10:20 → ER 10:21
DX: K80.50 Calculus of bile duct without cholangitis or cholecystitis without obstruction (principal)
CPT/HCPCS: 36415; 80053; 85025